=== PATIENT | male | born 1960 | race Caucasian/White ===

== ENCOUNTER 2021-12-25 12:00 | Outpatient (CLI) | payer BC, MEDICAID ==
[~2021-12-25] VITALS: Ht 180.3 cm; Wt 108.9 kg
[~2021-12-25 12:00] MED LIST: ALPR-624 PO; IBUP-1984 PO; NORCO10T PO; OXYC30TA PO
[2021-12-25] MEDS ORDERED: TRAM50TA2 PO (13:15)
[2021-12-25] MEDS ORDERED: FURO40TA4 PO (13:17)
[2021-12-25] MEDS ORDERED: MELO-102 PO (13:17)
[2021-12-25] MEDS ORDERED: METF-1203 PO (13:17)
[2021-12-25] MEDS ORDERED: HYDR-3964 PO (13:17)
[2021-12-25 14:04] LABS: BASOPHILS % (AUTO) 0.6 % (0-1); EOSINOPHILS # (AUTO) 0.3 X10'3 (0-0.9); EOSINOPHILS % (AUTO) 5.7 % (0-6); LYMPHOCYTES # (AUTO) 1.5 X10'3 (1.1-4.8); LYMPHOCYTES % (AUTO) 26.2 % (21-51); MEAN CORPUSCULAR HEMOGLOBIN 32.5 PG (27.0-31.0); MEAN CORPUSCULAR HGB CONC 33.9 g/dL (33.0-36.5); MEAN PLATELET VOLUME 7.3 FL (7.4-10.4); MONOCYTES # (AUTO) 0.4 X10'3 (0-0.9); MONOCYTES % (AUTO) 7.2 % (2-12); NEUTROPHILS # (AUTO) 3.5 X10'3 (1.8-7.7); NEUTROPHILS % (AUTO) 60.3 % (42-75); PRE OP HEMATOCRIT 41.3 % (42.0-52.0); PRE OP PLATELET COUNT 176 X10'3 (140-440); RED BLOOD COUNT 4.31 X10'6 (4.70-6.10); RED CELL DISTRIBUTION WIDTH 13.9 % (11.5-14.5)
[2021-12-25 14:26] LABS: ALBUMIN 3.8 G/DL (3.4-5.0); ALBUMIN/GLOBULIN RATIO 1.2 (1.1-1.5); ALKALINE PHOSPHATASE 74 IU/L (46-116); BLOOD UREA NITROGEN 19 MG/DL (7-18); BUN/CREATININE RATIO 21.1 (5.4-32.0); CALCIUM 8.2 MG/DL (8.5-10.1); CHLORIDE 101 MMOL/L (99-107); HEMOGLOBIN A1C 6.7 % (4.5-6.2); PRE OP ALT 37 U/L (30-65); PRE OP ANION GAP 7 (8-16); PRE OP AST 26 U/L (10-37); PRE OP BILIRUB, TOTAL 1.2 MG/DL (0.0-1.0); PRE OP GLUCOSE 88 MG/DL (70-104); PRE OP POTASSIUM 4.4 MMOL/L (3.4-5.1); PRE OP SODIUM 138 MMOL/L (135-145); TOTAL CARBON DIOXIDE 30.2 MMOL/L (24-32); TOTAL PROTEIN 6.9 G/DL (6.4-8.2); eGFR 86 ML/MIN
[2022-01-03] MEDS ORDERED: ringers solution, lacted 1,000 ML IV SCH (05:00)
[2022-01-03] MEDS ORDERED: famotidine 20mg tablet PO ONE (05:30)
[2022-01-03] MEDS ORDERED: cefazolin/dext.iso 2gm/50ml IV ONE (05:30)
[2022-01-03] MEDS ORDERED: tranexamic acid inj. 1,000 MG in 0.7% saline 100 ML PMX IV ONE (05:30)
[2022-01-03] MEDS ORDERED: vancomycin 1,500 MG in NS 300ml IV soln IV ONE (05:30)
== END 2021-12-25 23:59 | disposition home or self-care (01) ==
LOC: PRE-OP 12:00 → EDSTATUS 01-03 11:00
PROVIDERS: ATTEND Orthopaedic Surgery
DX: Z01.818 Encounter for other preprocedural examination (principal); Z20.822 Contact with and (suspected) exposure to COVID-19; M17.11 Unilateral primary osteoarthritis, right knee; E11.9 Type 2 diabetes mellitus without complications; E66.9 Obesity, unspecified; Z68.33 Body mass index [BMI] 33.0-33.9, adult; Z72.89 Other problems related to lifestyle; F17.210 Nicotine dependence, cigarettes, uncomplicated; Z79.899 Other long term (current) drug therapy; Z96.641 Presence of right artificial hip joint; Z98.890 Other specified postprocedural states
CPT/HCPCS: 36415; 71046; 80053; 83036; 85025; 87081; 93005; U0003; U0005; J3370; J3490; J7040; J7120